=== PATIENT | male | born 1945 | race Caucasian/White ===

== ENCOUNTER 2016-06-13 12:39 | Day surgery (SDC) | payer MEDICARE ==
[2016-06-13] MEDS ORDERED: LACTATED RINGERS 1,000 ML IV ONE (13:58)
[2016-06-13] MEDS ORDERED: MIDAZOLAM 2 MG/2 ML VIAL IVP ONE (14:35)
[2016-06-13] MEDS ORDERED: SIMETHICONE 40 MG/0.6 ML 30 ML BOTTLE PO ONE (14:35)
[2016-06-13] MEDS ORDERED: fentaNYL 250 MCG/5 ML VIAL IVP ONE (14:35)
== END 2016-06-13 12:40 | disposition home or self-care (01) ==
PROC: 0DJD8ZZ Inspection of Lower Intestinal Tract, Via Natural or Artificial Opening Endoscopic (ICD-10-PCS; principal; 2016-06-13 15:00)
DX: Z12.11 Encounter for screening for malignant neoplasm of colon (principal); K64.8 Other hemorrhoids; K64.4 Residual hemorrhoidal skin tags; K57.30 Diverticulosis of large intestine without perforation or abscess without bleeding; I10 Essential (primary) hypertension; E78.5 Hyperlipidemia, unspecified
CPT/HCPCS: A9270; G0121; J3010; J7120

== ENCOUNTER 2017-04-19 08:00 | Outpatient (CLI) | payer MEDICARE | END 2017-04-19 08:01 | disposition home or self-care (01) | LOC: LAB.WCP 08:00 | PROVIDERS: ATTEND Family Medicine | DX: Z78.9 Other specified health status (principal) | CPT/HCPCS: 36415; 86803 ==

== ENCOUNTER 2017-11-29 15:45 | Outpatient (CLI) | payer MEDICARE ==
[2017-11-29 19:24] LABS: PSA FREE 1.17 ng/mL (0.16-2.81)
[2017-11-29 19:25] LABS: PSA TOTAL 4.84 ng/mL (0.000-2.000)
== END 2017-11-29 15:46 | disposition home or self-care (01) ==
LOC: LAB.WCP 15:45
PROVIDERS: ATTEND Family Medicine
DX: R97.20 Elevated prostate specific antigen [PSA] (principal)
CPT/HCPCS: 36415; 84154

== ENCOUNTER 2017-12-08 10:22 | Outpatient (CLI) | payer MEDICARE ==
[2017-12-08] MEDS ORDERED: BARIUM SULFATE 148 GM POWDER PO ONE (12:49)
[2017-12-08] MEDS ORDERED: SIMETHICONE/SOD BICARB/CIT AC 1 EACH PACKET PO ONE (12:49)
[2017-12-08] MEDS ORDERED: BARIUM SULFATE 135 ML BOTTLE PO ONE (12:49)
--- NOTE | 2017-12-08 15:43 | XRAY Report ---
Procedure Date: 12/08/2017 Accession Number: [id number] / [id number] Procedure: [place] - Esophogram CPT Code: FULL RESULT: EXAM: BARIUM ESOPHAGRAM EXAM DATE: 12/08/2017 12:04 PM. CLINICAL HISTORY: Dysphagia. COMPARISONS: None. TECHNIQUE: Routine double contrast esophagram. Fluoroscopy Time: 3 minutes 45 seconds. Number of Images: 76. FINDINGS: Swallowing Mechanism: Normal. No tracheal aspiration or penetration. Esophageal Motility: Disorganized. Mucosa: Normal. No ulcerations or masses. Gastroesophageal Junction: Normal. No hernia, stricture, or significant reflux. Other: Mid esophageal diverticulum. IMPRESSION: The mid esophageal diverticulum in the setting of disorganized esophageal motility favors a pulsion diverticulum over a traction diverticulum. RADIA
== END 2017-12-08 10:23 | disposition home or self-care (01) ==
LOC: DI 10:22
PROVIDERS: ATTEND Family Medicine
DX: K22.5 Diverticulum of esophagus, acquired (principal); R13.10 Dysphagia, unspecified
CPT/HCPCS: 74220; A9270

== ENCOUNTER 2020-06-16 14:00 | Outpatient (CLI) | payer MEDICARE, OTHER ==
[2020-06-16 18:44] LABS: BILIRUBIN,URINE NEGATIVE (NEGATIVE); GLUCOSE, URINE (UA) NEGATIVE (NEGATIVE); KETONES,URINE (UA) NEGATIVE (NEGATIVE); LEUKOCYTE ESTERASE, URINE NEGATIVE (NEGATIVE); NITRITE,URINE NEGATIVE (NEGATIVE); OCCULT BLOOD,URINE NEGATIVE (NEGATIVE); PROTEIN,URINE NEGATIVE (NEGATIVE); UROBILINOGEN,URINE 0.2 (NORMAL) E.U./dL (NORMAL)
[2020-06-16 18:49] LABS: BACTERIA,URINE None Seen /HPF (None Seen); CLARITY,URINE CLEAR (CLEAR); RBC,URINE 0-5 /HPF (0-5); SQUAMOUS EPITHELIAL CELL,UR RARE Squamous (<= Few)
[2020-06-16 18:54] LABS: CREATININE,URINE 162.1 mg/dL; MICROALBUM/CREATININE RATIO,UR 4.3 ug/mg (<30.0); MICROALBUMIN,URINE 0.7 mg/dL (0-300.0); PROTEIN/CREATININE RATIO,URINE 0.1 (<=0.2)
== END 2020-06-16 23:59 | disposition home or self-care (01) ==
LOC: LAB.WCP 14:00
PROVIDERS: ATTEND Internal Medicine
DX: R80.9 Proteinuria, unspecified (principal); R97.20 Elevated prostate specific antigen [PSA]
CPT/HCPCS: 81001; 82043; 82570; 84156; 87086

== ENCOUNTER 2020-09-04 08:00 | Outpatient (CLI) | payer MEDICARE, OTHER ==
[2020-09-04 17:54] LABS: BASOPHILS # (AUTO) 0.1 10^3/uL (0.0-0.1); BASOPHILS % (AUTO) 1.4 %; EOSINOPHILS # (AUTO) 0.2 10^3/uL (0.0-0.7); EOSINOPHILS % (AUTO) 3.4 %; HCT - HEMATOCRIT 47.8 % (42.0-52.0); HGB - HEMOGLOBIN 15.9 g/dL (14.0-18.0); LYMPHOCYTES # (AUTO) 1.1 10^3/uL (1.5-3.5); LYMPHOCYTES % (AUTO) 21.5 %; MEAN CORPUSCULAR HEMOGLOBIN 29.6 pg (27.0-31.0); MEAN CORPUSCULAR HGB CONC 33.3 g/dL (32.0-36.0); MEAN PLATELET VOLUME 11.2 fL (7.4-11.4); MONOCYTES # (AUTO) 0.7 10^3/uL (0.0-1.0); MONOCYTES % (AUTO) 13.3 %; NEUTROPHILS % (AUTO) 59.8 %; PLT - PLATELET COUNT 97 10^3/uL (130-450); RED BLOOD COUNT 5.37 10^6/uL (4.70-6.10); RED CELL DISTRIBUTION WIDTH 13.2 % (12.0-15.0)
[2020-09-04 18:15] LABS: ALBUMIN 4.5 g/dL (3.2-5.5); ALBUMIN/GLOBULIN RATIO 1.4 (1.0-2.2); ALKALINE PHOSPHATASE 57 IU/L (42-121); ALT ALANINE AMINOTRANSFERASE 25 IU/L (10-60); AST ASPARTATE AMINOTRANSFERASE 34 IU/L (10-42); BILIRUBIN,TOTAL 1.1 mg/dL (0.2-1.0); BUN - BLOOD UREA NITROGEN 19 mg/dL (6-20); CALCIUM 9.8 mg/dL (8.5-10.3); CARBON DIOXIDE - CO2 29 mmol/L (21-32); CHLORIDE 97 mmol/L (101-111); CHOL/HDL RATIO 4.2 (<5.0); CHOLESTEROL 215 mg/dL; CREATININE 1.1 mg/dL (0.6-1.2); GFR - MDRD 65 (>89); GLUCOSE 95 mg/dL (70-100); HDL CHOLESTEROL 51 mg/dL; LDL CHOLESTEROL,CALCULATED 135 mg/dL; LDL/HDL RATIO 2.6 (<3.6); POTASSIUM 3.4 mmol/L (3.5-5.0); SODIUM 138 mmol/L (135-145); TOTAL PROTEIN 7.8 g/dL (6.7-8.2); TRIGLYCERIDES 145 mg/dL; URIC ACID 5.8 mg/dL (2.6-7.2); VLDL CHOLESTEROL 29 mg/dL
[2020-09-04 18:18] LABS: PSA FREE 1.14 ng/mL (0.16-2.81)
[2020-09-04 18:19] LABS: PSA TOTAL 4.62 ng/mL (0.000-2.000)
[2020-09-04 18:22] LABS: THYROID STIMULATING HORMONE 4.36 uIU/mL (0.34-5.60)
== END 2020-09-04 23:59 | disposition home or self-care (01) ==
LOC: LAB.WCP 08:00
PROVIDERS: ATTEND Internal Medicine
DX: I10 Essential (primary) hypertension (principal); R97.20 Elevated prostate specific antigen [PSA]; K22.5 Diverticulum of esophagus, acquired; R13.10 Dysphagia, unspecified; E78.5 Hyperlipidemia, unspecified; M10.9 Gout, unspecified
CPT/HCPCS: 36415; 80053; 80061; 83721; 84153; 84154; 84443; 84550; 85025

== ENCOUNTER 2022-04-06 08:00 | Outpatient (CLI) | payer MEDICARE ==
[2022-04-06 17:29] LABS: BILIRUBIN,URINE NEGATIVE (NEGATIVE); CLARITY,URINE CLEAR (CLEAR); GLUCOSE, URINE (UA) NEGATIVE (NEGATIVE); KETONES,URINE (UA) NEGATIVE (NEGATIVE); LEUKOCYTE ESTERASE, URINE NEGATIVE (NEGATIVE); NITRITE,URINE NEGATIVE (NEGATIVE); OCCULT BLOOD,URINE NEGATIVE (NEGATIVE); PH,URINE 5.5 PH (5.0-7.5); PROTEIN,URINE NEGATIVE (NEGATIVE); UROBILINOGEN,URINE 0.2 (NORMAL) E.U./dL (NORMAL)
[2022-04-06 17:37] LABS: BACTERIA,URINE None Seen /HPF (None Seen); RBC,URINE 0-5 /HPF (0-5); SQUAMOUS EPITHELIAL CELL,UR NONE SEEN (<= Few); WBC,URINE 0-3 /HPF (0-3)
== END 2022-04-06 23:59 | disposition home or self-care (01) ==
LOC: LAB.N 08:00
PROVIDERS: ATTEND Internal Medicine
DX: R97.20 Elevated prostate specific antigen [PSA] (principal); R31.9 Hematuria, unspecified
CPT/HCPCS: 81001; 87086

== ENCOUNTER 2022-08-17 13:51 | Outpatient (CLI) | payer MEDICARE ==
[2022-08-17 14:09] LABS: CREATININE 1.1 mg/dL (0.6-1.2)
[2022-08-17] MEDS ORDERED: iohexoL-300 100 ML VIAL ONE (14:15)
[2022-08-17] MEDS ORDERED: iohexoL-300 100 ML VIAL IVP ONE (14:30)
--- NOTE | 2022-08-17 16:34 | CT Report ---
PROCEDURE: IVP INDICATIONS: LOWER URINARY TRACT SX CONTRAST: 140ml Omnipaque 300 TECHNIQUE: After the administration of intravenous contrast, 5 mm thick sections acquired from the diaphragms to the symphysis. 5 mm thick coronal and sagittal reformats were acquired. For radiation dose reducti on, the following was used: automated exposure control, adjustment of mA and/or kV according to nissa ent size. COMPARISON: None. FINDINGS: Image quality: Excellent. Urinary system: Both kidneys are normal in size. No hydronephrosis or nephrolithiasis on pre-contras t images. No solid masses or complex cysts which require follow up. The opacified renal calyces and ureters appear normal, without filling defect. Bladder wall thickness is normal, accounting for unde rdistention. No calcified bladder stones. There is significant enlargement of the prostate with nodul ar extrinsic compressions on the base of the bladder. No intrinsic bladder filling defect is felt to be present. OTHER Lung bases and heart: Unremarkable. Liver: Unremarkable. Gallbladder and biliary tree: Unremarkable. No biliary dilation. Spleen: Unremarkable. Pancreas: Unremarkable. Adrenals: Unremarkable. Bowel and peritoneum: No bowel distension. No pathologic free fluid. Extensive sigmoid diverticulosis without evidence of diverticulitis. Scattered diverticulosis elsewhere within the colon. Abdominal Lymph nodes: No central or retroperitoneal adenopathy. Vessels: Unremarkable. Reproductive organs: Unremarkable. Pelvic Lymph nodes: Unremarkable. Bones: No aggressive osseous abnormality. Other: None. IMPRESSION: 1. No renal stone, ureteral stone, renal mass, or hydronephrosis. 2. The prostate is significantly enlarged. There are nodular impressions on the base of the bladder w hich are felt to very likely be extrinsic impressions from prostate nodularity, and felt to be unlike ly from additional intrinsic polypoid lesions. 3. Extensive sigmoid diverticulosis without evidence of diverticulitis. Reviewed by: Molina Carrillo MD on 08/17/2022 4:33 PM PDT Approved by: Molina Carrillo MD on 08/17/2022 4:33 PM PDT Station ID: [id number]
== END 2022-08-17 13:52 | disposition home or self-care (01) ==
LOC: LAB 13:51
PROVIDERS: ATTEND Urology
DX: N40.1 Benign prostatic hyperplasia with lower urinary tract symptoms (principal); R31.0 Gross hematuria; K57.30 Diverticulosis of large intestine without perforation or abscess without bleeding; Z87.898 Personal history of other specified conditions
CPT/HCPCS: 36415; 74178; 82565; Q9967